=== PATIENT | male | born 1970 | race African-American/Black ===

== ENCOUNTER 2016-10-23 23:19 | Emergency (ER) | payer MEDICAID ==
[~2016-10-23] VITALS: Ht 177.8 cm; Wt 81.6 kg
[~2016-10-23 23:19] MED LIST: ATRIPLA TABLET1 EAC1 ORAL; PRADAXA150 MG ORAL
[2016-10-23 23:46] LABS: BASOPHILS % (AUTO) 1.1 % (0.0-2.0); LYMPHOCYTES % (AUTO) 45.3 % (20.0-45.0); MEAN CORPUSCULAR HEMOGLOBIN 29.5 PG (27.0-31.0); MEAN CORPUSCULAR HGB CONC 33.9 G/DL (32.0-36.0); MEAN CORPUSCULAR VOLUME 87 FL (80-99); MEAN PLATELET VOLUME 5.7 FL (6.5-10.1); MONOCYTES % (AUTO) 9.8 % (1.0-10.0); NEUTROPHILS % (AUTO) 40.8 % (45.0-75.0); PLATELET COUNT 391 K/UL (150-450); RED BLOOD COUNT 4.19 M/UL (4.70-6.10); RED CELL DISTRIBUTION WIDTH 14.5 % (11.6-14.8); WHITE BLOOD COUNT 4.3 K/UL (4.8-10.8)
[2016-10-23 23:55] LABS: INR 1.2 (0.9-1.1)
[2016-10-24 00:02] LABS: ALANINE AMINOTRANSFERASE 9 U/L (3-41); ALBUMIN/GLOBULIN RATIO 0.9 (1.0-2.7); ANION GAP 12 (5-15); ASPARTATE AMINO TRANSFERASE 15 U/L (5-40); CALCIUM 7.2 mg/dL (8.6-10.2); CARBON DIOXIDE 24 mEQ/L (20-30); CHLORIDE 103 mEQ/L (98-107); CREATININE 0.7 mg/dL (0.7-1.2); GLOMERULAR FILTRATION RATE > 60 mL/min (>60); HEMOLYSIS 13; POTASSIUM 3.4 mEQ/L (3.4-4.9); SODIUM 139 mEQ/L (135-145)
[2016-10-24 00:04] LABS: TROPONIN I < 0.30 ng/mL (<=0.30)
[2016-10-24 00:12] LABS: CKMB < 1.5 ng/mL (< 6.7)
[2016-10-24] MEDS ORDERED: PRADAXA150 MG ORAL (00:35)
[2016-10-24 01:23] VITALS: BP_SYST 124; BP_SYST 133; BP_DIAS 81; BP_DIAS 85
--- NOTE | 2016-10-24 03:49 | Emergency Room Report ---
History of Present Illness General Chief Complaint: General Complaint Source: Patient Present Illness HPI 46-year-old male presents to ED complaining of swelling in both legs. Patient was picked up by EMS from the street. Patient states he has history of blood clots in both legs and used to take Pradaxa but has run out of medication x1 month. Patient denies any pain in the legs. Denies any chest pain or shortness of breath. Denies any fevers or chills. States he is able to walk. No other aggravating or relieving factors. Denies any other associated symptoms Allergies: Coded Allergies: No Known Allergies (Unverified , 10/23/16) Patient History Past Medical History: none Past Surgical History: none Pertinent Family History: none Social History: Denies: alcohol use, drug use, smoking Immunizations: UTD Reviewed Nursing Documentation: PMH: Agreed, PSxH: Agreed Nursing Documentation-PMH Past Medical History: No History, Except For Review of Systems All Other Systems: negative except mentioned in HPI Physical Exam Vital Signs Date Time Temp Pulse Resp B/P Pulse Ox O2 Delivery O2 Flow Rate FiO2 10/23/16 22:53 98.8 100 16 133/81 98 Room Air Sp02 EP Interpretation: reviewed, normal General Appearance: no apparent distress, alert, GCS 15, non-toxic Head: normocephalic Eyes: bilateral eye PERRL, bilateral eye normal inspection ENT: normal ENT inspection Neck: normal inspection Respiratory: chest non-tender, lungs clear, normal breath sounds, speaking full sentences Cardiovascular #1: regular rate, rhythm, no edema Gastrointestinal: normal inspection Rectal: deferred Genitourinary: no CVA tenderness Musculoskeletal: back normal, gait/station normal, normal range of motion, non- tender, swelling - bilateral LE Neurologic: alert, oriented x3, responsive, motor strength/tone normal, sensory intact, speech normal Psychiatric: normal inspection Skin: normal inspection Lymphatic: normal inspection Medical Decision Making Diagnostic Impression: Primary Impression: Leg swelling ER Course Hospital Course 46-year-old male present ED complaining of bialteral calf swelling. h/o DVT Differential diagnoses include: DVT, cellulitis, contusion, abscess Clinical course Patient placed on stretcher after initial history and physical I ordered labs, and DVT ultrasound. Labs reviewed- electrolytes okay, hemoglobin/hematocrit stable Doppler ultrasound shows no evidence of DVT Agreed to provide the patient with a prescription for Pradaxa I. I feel this is a highly complex case requiring extensive working including EKG/Rhythm strip, Xray/CT/US, Blood/urine lab work, repeat exams while in ED, and administration of strong opiates/narcotics for pain control, admission to hospital or close patient follow up. Diagnosis - leg swelling Stable and discharged to home with Rx Pradaxa. Followup with PMD. Return to ED if symptoms recur or worsen Labs Test 10/23/16 23:38 White Blood Count 4.3 K/UL (4.8-10.8) Red Blood Count 4.19 M/UL (4.70-6.10) Hemoglobin 12.3 G/DL (14.2-18.0) Hematocrit 36.5 % (42.0-52.0) Mean Corpuscular Volume 87 FL (80-99) Mean Corpuscular Hemoglobin 29.5 PG (27.0-31.0) Mean Corpuscular Hemoglobin Concent 33.9 G/DL (32.0-36.0) Red Cell Distribution Width 14.5 % (11.6-14.8) Platelet Count 391 K/UL (150-450) Mean Platelet Volume 5.7 FL (6.5-10.1) Neutrophils (%) (Auto) 40.8 % (45.0-75.0) Lymphocytes (%) (Auto) 45.3 % (20.0-45.0) Monocytes (%) (Auto) 9.8 % (1.0-10.0) Eosinophils (%) (Auto) 3.0 % (0.0-3.0) Basophils (%) (Auto) 1.1 % (0.0-2.0) Prothrombin Time 12.0 SEC (9.30-11.50) Prothromb Time International Ratio 1.2 (0.9-1.1) Activated Partial Thromboplast Time 28 SEC (23-33) Sodium Level 139 mEQ/L (135-145) Potassium Level 3.4 mEQ/L (3.4-4.9) Chloride Level 103 mEQ/L (98-107) Carbon Dioxide Level 24 mEQ/L (20-30) Anion Gap 12 (5-15) Blood Urea Nitrogen 6 mg/dL (7-23) Creatinine 0.7 mg/dL (0.7-1.2) Estimat Glomerular Filtration Rate > 60 mL/min (>60) Glucose Level 86 mg/dL (74-106) Calcium Level 7.2 mg/dL (8.6-10.2) Total Bilirubin < 0.2 mg/dL (0.0-1.2) Aspartate Amino Transf (AST/SGOT) 15 U/L (5-40) Alanine Aminotransferase (ALT/SGPT) 9 U/L (3-41) Alkaline Phosphatase 85 U/L (40-129) Total Creatine Kinase 169 U/L (38-174) Creatine Kinase MB < 1.5 ng/mL (< 6.7) Troponin I < 0.30 ng/mL (<=0.30) Total Protein 6.0 g/dL (6.6-8.7) Albumin 2.9 g/dL (3.5-5.2) Globulin 3.1 g/dL Albumin/Globulin Ratio 0.9 (1.0-2.7) CT/MRI/US Diagnostic Results CT/MRI/US Diagnostic Results : Imaging Test Ordered: doppler US bilateral LE Impression no evidence of DVT Last Vital Signs Date Time Temp Pulse Resp B/P Pulse Ox O2 Delivery O2 Flow Rate FiO2 10/24/16 01:23 98.8 63 16 124/85 98 Room Air Status: improved Disposition: HOME, SELF-CARE Condition: Stable Scripts Dabigatran Etexilate Mesylate* (PRADAXA*) 150 Mg Capsule 150 MG ORAL DAILY, #30 CAP Prov: DONYA ZHOU M.D. 10/24/16 Referrals: NOT CHOSEN [facility]/,REFERRING (PCP) Patient Instructions: Peripheral Edema DONYA ZHOU M.D. October 24, 2016 03:49
--- NOTE | 2016-10-25 11:35 | Diagnostic Imaging Report ---
APPROVED REPORT CPT Code: 50465 Present Symptoms Lower Extremity Pain: Bilateral Lower Extremity Edema: Bilateral Comments: Technically difficult study due to swelling. BILATERAL: Imaging reveals a patent deep venous system bilaterally. There is no evidence of thrombus within the femoral, popliteal or tibial segments. Doppler indicates normal spontaneous flow within these segments.
== END 2016-10-24 | disposition home or self-care (01) ==
LOC: EDBD 23:19 → EMR 10-24 01:24
DX: R22.43 Localized swelling, mass and lump, lower limb, bilateral (principal)
CPT/HCPCS: 36415; 80053; 82550; 82553; 84484; 85025; 85610; 85730; 93970; 96360